=== PATIENT | male | born 1990 | race Two or more races ===

== ENCOUNTER 2018-12-26 04:09 | Emergency (ER) | payer MEDICAID ==
[~2018-12-26] VITALS: Ht 170.2 cm; Wt 74.8 kg
--- NOTE | 2018-12-26 04:38 | NUR ---
PT BIBSELF WITH FAMILY. PT AAOX4. AMBULATORY. PER PATIENT "SHARP PAIN OF 6/10 ON LOWER TAILBONE AND DISCHARGE X 6 MONTH WORST IN THE PAST WEEK." UPON ASSESSMENT, OPEN WOUND WITH DISCHARGE AND SWELLING NOTED ON LOWER TAILBONE AND TENDERNESS UPON PALPATION. AWAITING MD FOR EVAL.
[2018-12-26] MEDS ORDERED: oxyCODONE/APAP (5/325 MG) 1 UDTAB TABLET PO ONE (05:00)
[2018-12-26] MEDS ORDERED: oxyCODONE/APAP (5/325 MG) 1 UDTAB TABLET ONE (05:07)
--- NOTE | 2018-12-26 05:12 | NUR ---
PERC[facility] ORDER RECEIVED FROM . MEDICATION NOT AVAILABLE AT ER [facility]. MEDICATION WAS TAKEN FROM [facility].
[2018-12-26] MEDS ORDERED: LIDOCAINE 1%-EPI 1:100,000 20 ML VIAL ONE (05:31)
--- NOTE | 2018-12-26 06:36 | NUR ---
Patient discharged to home in stable condition. Written and verbal after care instructions given. Patient verbalizes understanding of instruction. PT ambulatory with a steady gait.
[2018-12-26 06:39] VITALS: BP 122/82
== END 2018-12-26 06:40 | disposition home or self-care (01) ==
LOC: ER 04:14
DX: L05.91 Pilonidal cyst without abscess (principal)
CPT/HCPCS: 10080; 99284; A6407; J3490